=== PATIENT | female | born 1955 | race Caucasian/White ===

== ENCOUNTER 2019-03-09 09:14 | Emergency (ER) | payer BC, OTHER ==
--- NOTE | 2019-03-09 09:33 | ED ---
Throat Pain/Nasal Congestion - HPI Summary HPI Summary: Patient is a 63 y/o F presenting to ED with complaints of right eye pain and blood in right eye. She states that this morning, she experienced onset of some irritation at her right eye. Twenty minutes later, she noted some bleeding at her conjunctival area. She denies any recent eye injury and notes that she is on Plavix since 2011 after having a stent placed. Patient notes pain to the right side of her right eye and aggravation of pain when gazing to left. No changes in vision noted. She is on two blood pressure medications but cannot recall their names at this time. Patient notes that she took them before coming to ED. On vitals, BP is 188/88. Patient is from [place] and notes that she has her yearly appointment with her eye doctor coming up within the next week. is present in the room. Patient does not report fever, chills, sore throat, chest pain, SOB, cough, abdominal pain, N/V, dysuria, hematuria, myalgia , edema, rash, or dizziness. On triage, pain is rated 4/10, nothing is noted to aggravate/alleviate Sx. Home medications and allergies are reviewed. - History of Current Complaint Chief Complaint: EDEyeProblem Time Seen by Provider: 03/09/19 09:26 Hx Obtained From: Patient Onset/Duration: Lasting Hours, Still Present Severity: Moderate Associated Signs And Symptoms: Positive: Negative Cough: None - Allergies/Home Medications Allergies/Adverse Reactions: Allergies Allergy/AdvReac Type Severity Reaction Status Date / Time morphine Allergy Unknown Verified 03/09/19 09:25 Reaction Details Home Medications: Home Medications Clopidogrel TAB* [Plavix TAB*] 75 mg PO DAILY 03/09/19 [History Confirmed ] Empaglifozin (NF) [Jardiance] 25 mg PO DAILY 03/09/19 [History Confirmed ] Insulin GLARGINE(*) [Lantus(*)] 30 units SUBCUT Q12H 03/09/19 [History Confirmed 03/09/19] Zolpidem TAB* [Ambien TAB*] 10 mg PO BEDTIME PRN 03/09/19 [History Confirmed ] PMH/Surg Hx/FS Hx/Imm Hx Endocrine/Hematology History: Reports: Hx Diabetes Cardiovascular History: Reports: Hx Hypertension - Surgical History Surgery Procedure, Year, and Place: stent placed 2011 Infectious Disease History: No Infectious Disease History: Denies: Traveled Outside the [place] in Last 30 Days - Family History Known Family History: Positive: Hypertension, Diabetes - Social History Alcohol Use: None Substance Use Type: Reports: None Smoking Status (MU): Never Smoked Tobacco Review of Systems Negative: Fever, Chills Eyes: Other - positive - right subconjunctival hemorrhage, right eye pain; negative - visual changes Negative: Sore Throat Negative: Chest Pain Negative: Shortness Of Breath, Cough Negative: Abdominal Pain, Vomiting, Nausea Negative: dysuria, hematuria Negative: Myalgia, Edema Negative: Rash Neurological: Other - negative - dizziness All Other Systems Reviewed And Are Negative: Yes Physical Exam - Summary Physical Exam Summary: Constitutional: Well-developed, Well-nourished, Alert. (-) Distressed Skin: Warm, Dry HENT: Normocephalic; Atraumatic Eyes: right temporal subconjunctival hemorrhage Neck: Musculoskeletal ROM normal neck. (-) JVD, (-) Stridor, (-) Tracheal deviation Cardio: Rhythm regular, rate normal, Heart sounds normal; Intact distal pulses; The pedal pulses are 2+ and symmetric. Radial pulses are 2+ and symmetric. (-) Murmur Pulmonary/Chest wall: Effort normal. (-) Respiratory distress, (-) Wheezes, (-) Rales Abd: Soft, (-) tenderness, (-) Distension, (-) Guarding, (-) Rebound Musculoskeletal: (-) Edema Lymph: (-) Cervical adenopathy Neuro: Alert, Oriented x3 Psych: Mood and affect Normal Triage Information Reviewed: Yes Vital Signs On Initial Exam: Initial Vitals Temp Pulse Resp BP Pulse Ox 97.3 F 72 16 188/88 98 03/09/19 09:21 03/09/19 09:21 03/09/19 09:21 03/09/19 09:21 03/09/19 09:21 Vital Signs Reviewed: Yes Diagnostics - Vital Signs Vital Signs Temp Pulse Resp BP Pulse Ox 03/09/19 09:21 97.3 F 72 16 188/88 98 - Laboratory Lab Statement: Any lab studies that have been ordered have been reviewed, and results considered in the medical decision making process. Re-Evaluation - Re-Evaluation First Eval Re-Evaluation Time: 10:28 Comment: Repeated BP 155/84. Patient to be discharged to home and follow up with PCP within three days. EENT Course/Dx - Course Course Of Treatment: Patient is a 63 y/o F presenting to ED with complaints of right eye pain and blood in right eye. She states that this morning, she experienced onset of some irritation at her right eye. Twenty minutes later, she noted some bleeding at her conjunctival area. She denies any recent eye injury and notes that she is on Plavix since 2011 after having a stent placed. Patient notes pain to the right side of her right eye and aggravation of pain when gazing to left. No changes in vision noted. She is on two blood pressure medications but cannot recall their names at this time. Patient notes that she took them before coming to ED. On vitals, BP is 188/88. Patient received Losartan 25 mg PO. - Diagnoses Provider Diagnoses: Conjunctival hemorrhage, right eye, Uncontrolled hypertension Discharge - Sign-Out/Discharge Documenting (check all that apply): Patient Departure - discharge Patient Received Moderate/Deep Sedation with Procedure: No - Discharge Plan Condition: Stable Disposition: HOME Prescriptions: Losartan Potassium 50 mg PO DAILY #10 Losartan TAB* [Cozaar TAB*] 50 mg PO DAILY #10 tab Patient Education Materials: Subconjunctival Hemorrhage (ED), Hypertension (ED) Referrals: [facility] [Outside] - 3 Days Additional Instructions: PLEASE RETURN TO EMERGENCY DEPARTMENT FOR ANY NEW OR WORSENING SYMPTOMS. FOLLOW UP WITH YOUR PRIMARY CARE PHYSICIAN WITHIN THREE DAYS. - Attestation Statements Document Initiated by Scribe: Yes Documenting Scribe: JULIANA WHITNEY Provider For Whom Amanda is Documenting (Include Credential): RO BLACKBURN MD Scribe Attestation: JULIANA Flores, scribed for RO BLACKBURN MD on 03/09/19 at 1057. Status of Scribe Document: Ready
[2019-03-09] MEDS ORDERED: Losartan TAB* 25 MG PO ONE (09:52)
[2019-03-09 10:28] VITALS: BP 155/84
== END 2019-03-09 10:31 | disposition home or self-care (01) ==
LOC: ED 09:14
DX: H11.31 Conjunctival hemorrhage, right eye (principal); I10 Essential (primary) hypertension; E11.9 Type 2 diabetes mellitus without complications; Z79.4 Long term (current) use of insulin; Z79.84 Long term (current) use of oral hypoglycemic drugs; Z79.01 Long term (current) use of anticoagulants; Z95.5 Presence of coronary angioplasty implant and graft; Z88.5 Allergy status to narcotic agent
CPT/HCPCS: 99282; A9270-GY